=== PATIENT | male | born 1985 | race Caucasian/White ===

== ENCOUNTER 2020-05-31 04:46 | Emergency (ER) | payer BC, OTHER ==
[~2020-05-31] VITALS: Ht 185.4 cm; Wt 176.5 kg
--- NOTE | 2020-05-31 05:00 | NUR ---
PATIENT BIB [facility] FOR [facility] AT WORK. PATIENT AMBULATORY ON SCENE AND IN ER. PATIENT PREFERS TO SIT ON SIDE OF BED FOR COMFORT. DENIES LOC. A&OX4. CALL [facility] IN REACH. SAFETY MAINTAINED. WILL CONTINUE TO MONITOR.
[2020-05-31] MEDS ORDERED: DIAZEPAM 5 MG TABLET ONE (05:09)
[2020-05-31] MEDS ORDERED: KETOROLAC 30 MG/1 ML ONE (05:09)
--- NOTE | 2020-05-31 05:10 | NUR ---
PATIENT IN XR AT THIS TIME
[2020-05-31] MEDS ORDERED: DIAZEPAM 5 MG TABLET PO ONE (05:30)
[2020-05-31] MEDS ORDERED: KETOROLAC 30 MG/1 ML IM ONE (05:30)
--- NOTE | 2020-05-31 05:43 | NUR ---
PATIENT RETURNED FROM XR. MEDICATIONS ORDERED ADMINISTERED. PATIENT EDUCATED ABOUT MEDICATIONS PRIOR TO ADMIN. CALL [facility] IN REACH. SAFETY MAINTAINED. WILL CONTINUE TO MONITOR.
--- NOTE | 2020-05-31 06:45 | NUR ---
DISCHARGE INSTRUCTIONS REVIEWED WITH PATIENT. NO FURTHER QUESTIONS. PRESCRIPTION HANDED DIRECTLY TO PATIENT. REVIEWED RESTRICTIONS WITH JESSICA. STEADY GAIT TO LOBBY. NO IV PLACED DURING THIS ER VISIT. ALL PERSONAL BELONGINGS WITH PATIENT ON DEPARTURE. PATIENT REPORTS PAIN HAS DECREASED AFTER MEDICATIONS ADMIN.
[2020-05-31 06:46] VITALS: BP 128/67
== END 2020-05-31 06:48 | disposition home or self-care (01) ==
LOC: ED 05:47
DX: S39.012A Strain of muscle, fascia and tendon of lower back, initial encounter (principal); F17.210 Nicotine dependence, cigarettes, uncomplicated; M54.6 Pain in thoracic spine; Z90.89 Acquired absence of other organs; W01.0XXA Fall on same level from slipping, tripping and stumbling without subsequent striking against object, initial encounter; Y93.89 Activity, other specified; Y92.89 Other specified places as the place of occurrence of the external cause; Y99.8 Other external cause status
CPT/HCPCS: 72072; 72110; 96372; 99284; 99406; J1885